=== PATIENT | female | born 1980 | race Caucasian/White ===

== ENCOUNTER 2018-10-07 22:13 | Emergency (ER) | payer BC ==
[~2018-10-07] VITALS: Ht 162.6 cm; Wt 68.0 kg
[2018-10-07 23:30] VITALS: BP 113/69
== END 2018-10-07 23:30 | disposition home or self-care (01) | DRG 605 ==
LOC: ED 22:13
PROC: 0HQDXZZ Repair Right Lower Arm Skin, External Approach (ICD-10-PCS; principal; 2018-10-07)
DX: S61.511A Laceration without foreign body of right wrist, initial encounter (principal); W29.0XXA Contact with powered kitchen appliance, initial encounter; Y93.89 Activity, other specified; Y92.009 Unspecified place in unspecified non-institutional (private) residence as the place of occurrence of the external cause